=== PATIENT | male | born 1970 | race Caucasian/White ===

== ENCOUNTER 2024-08-21 06:42 | Day surgery (SDC) | payer OTHER ==
[~2024-08-21] VITALS: Ht 175 cm; Wt 81.8 kg
[~2024-08-21 06:42] MED LIST: SODIUM CHLORIDE 0.9% 1,000 ML ONE
[2024-08-21] MEDS: SODIUM CHLORIDE 0.9% 1,000 ML IV ONE (07:35)
[2024-08-21] MEDS ORDERED: TAMS0.4C94 PO (08:09)
[2024-08-21] MEDS ORDERED: DOCU-412 PO (08:09)
[2024-08-21] MEDS ORDERED: LISI-893 PO (08:09)
[2024-08-21] MEDS ORDERED: IBUP-1493 PO (08:09)
[2024-08-21] MEDS ORDERED: ALBU18HF12 IH (08:09)
[2024-08-21] MEDS ORDERED: BUPR1TAB46 SL (08:09)
[2024-08-21] MEDS ORDERED: FAMO20 PO (08:09)
[2024-08-21] MEDS ORDERED: ATOR10TA PO (08:09)
[2024-08-21] MEDS ORDERED: ONDA-104 PO (08:09)
[2024-08-21] MEDS ORDERED: MAGN250T9 PO (08:09)
[2024-08-21] MEDS ORDERED: PROPOFOL 1% 20 ML VIAL IVP ONE (12:00)
[2024-08-21] MEDS ORDERED: LIDOCAINE/PF 2% 5 ML VIAL ONE (12:00)
== END 2024-08-21 11:10 | disposition home or self-care (01) ==
LOC: SURGERY 06:42
PROVIDERS: ATTEND Internal Medicine
DX: R11.2 Nausea with vomiting, unspecified (principal); K29.70 Gastritis, unspecified, without bleeding; I10 Essential (primary) hypertension; Z88.1 Allergy status to other antibiotic agents; Z72.89 Other problems related to lifestyle; Z98.890 Other specified postprocedural states; Z79.899 Other long term (current) drug therapy
CPT/HCPCS: 43239; 88305; C1769; J2704; J3490; J7030